=== PATIENT | male | born 1980 | race Caucasian/White ===

== ENCOUNTER 2018-09-08 10:54 | Emergency (ER) | payer MEDICAID ==
[~2018-09-08] VITALS: Ht 177.8 cm; Wt 77.3 kg
[2018-09-08] MEDS ORDERED: METH10 PO (11:06)
[2018-09-08] MEDS ORDERED: LIDOCAINE 1% 10 ML VIAL INJ ONE (15:30)
[2018-09-08 15:59] VITALS: BP 131/71
== END 2018-09-08 16:12 | disposition home or self-care (01) ==
LOC: EMS 10:56
DX: L02.413 Cutaneous abscess of right upper limb (principal); F41.9 Anxiety disorder, unspecified; F17.210 Nicotine dependence, cigarettes, uncomplicated
CPT/HCPCS: 10060; 99283; J3490